=== PATIENT | female | born 1985 ===

== ENCOUNTER 2017-01-17 18:18 | Inpatient (IN) | payer OTHER, MEDICAID ==
--- NOTE | 2017-01-17 18:36 | ED PDOC ---
Arrival/HPI - General Time Seen by Provider: 01/17/17 18:30 Historian: Patient
[2017-01-17 18:59] VITALS: BMI 35.4
--- NOTE | 2017-01-17 19:08 | ED PDOC ---
Arrival/HPI - History of Present Illness Time/Duration: < week Symptom Onset: Sudden Symptom Course: Worsening Quality: Aching, Pressure Severity Level: 5 Activities at Onset: Light Context: Work <Yaneth Delaney - Last Filed: 01/17/17 20:54> <Stacey Galdamez - Last Filed: 01/17/17 21:07> - General Chief Complaint: Lower Extremity Problem/Injury Time Seen by Provider: 01/17/17 18:30 - History of Present Illness Narrative History of Present Illness (Text): 01/17/17 19:24 This is a 31Y F with PMH HTN and hypothyroidism here for L foot pain x 4 days. Patient reports she was at work and got her foot stuck in a wooden pallet. She felt as though she got splinters from it. Since then, her foot has become more red and swollen without any drainage. The patient denies fever or chills, CP, SOB, n/v/d, numbness/tingling. She was able to go to work today and ambulate without any issues. (Yaneth Delaney) Past Medical History - Provider Review Nursing Documentation Reviewed: Yes - Cardiac Hx Cardiac Disorders: Yes Hx Hypertension: Yes - Pulmonary Hx Respiratory Disorders: No - Neurological Hx Neurological Disorder: No - HEENT Hx Blind: No - Renal Hx Renal Disorder: No - Endocrine/Metabolic Hx Endocrine Disorders: No - Hematological/Oncological Hx Blood Disorders: No - Integumentary Hx Dermatological Disorder: No - Musculoskeletal/Rheumatological Hx Musculoskeletal Disorders: No - Gastrointestinal Hx Gastrointestinal Disorders: No - Genitourinary/Gynecological Hx Genitourinary Disorders: No - Psychiatric Hx Psychophysiologic Disorder: No Hx Substance Use: No <Yaneth Delaney - Last Filed: 01/17/17 20:54> Family/Social History - Physician Review Nursing Documentation Reviewed: Yes Family/Social History: Hypertension, CAD/GA, Neoplasm/Cancer Smoking Status: Never Smoked Hx Alcohol Use: No Hx Substance Use: No <Yaneth Delaney - Last Filed: 01/17/17 20:54> Allergies/Home Meds <Yaneth Delaney - Last Filed: 01/17/17 20:54> <Stacey Galdamez - Last Filed: 01/17/17 21:07> Allergies/Adverse Reactions: Allergies No Known Allergies Allergy (Verified 01/17/17 18:32) Home Medications: Home Meds Medication Instructions Recorded Confirmed amLODIPine [Norvasc] 10 mg PO DAILY 01/17/17 01/17/17 hydroCHLOROthiazide [Hydrodiuril] 25 mg PO DAILY 01/17/17 01/17/17 Review of Systems - Physician Review All systems were reviewed & negative as marked: Yes - Review of Systems Constitutional: Normal. absent: Fatigue, Fevers Respiratory: Normal. absent: SOB, Cough Cardiovascular: Normal. absent: Chest Pain, Palpitations Gastrointestinal: Normal. absent: Abdominal Pain, Stool Changes, Diarrhea, Nausea, Vomiting Musculoskeletal: Other (L foot pain and swelling) Skin: Skin Lesions, Cellulitis. absent: Rash, Pruritis Neurological: Normal. absent: Headache, Dizziness Endocrine: Normal. absent: Diaphoresis <Yaneth Delaney - Last Filed: 01/17/17 20:54> Physical Exam Vital Signs Reviewed: Yes Temperature: Afebrile Blood Pressure: Hypertensive Pulse: Regular Respiratory Rate: Normal Appearance: Positive for: Well-Appearing, Non-Toxic, Comfortable Pain Distress: None Mental Status: Positive for: Alert and Oriented X 3 - Systems Exam Head: Present: Atraumatic, Normocephalic Mouth: Present: Moist Mucous Membranes Neck: Present: Normal Range of Motion Respiratory/Chest: Present: Clear to Auscultation, Good Air Exchange. No: Respiratory Distress, Accessory Muscle Use Cardiovascular: Present: Regular Rate and Rhythm, Normal S1, S2. No: Murmurs Abdomen: Present: Normal Bowel Sounds. No: Tenderness, Distention, Peritoneal Signs Back: Present: Normal Inspection Upper Extremity: Present: Normal Inspection. No: Cyanosis, Edema Lower Extremity: Present: Normal Inspection, NORMAL PULSES, Swelling (L foot), Erythema (L foot ) Neurological: Present: GCS=15, CN II-XII Intact, Speech Normal Skin: Present: Warm, Dry, Normal Color. No: Rashes Psychiatric: Present: Alert, Oriented x 3, Normal Insight, Normal Concentration <Yaneth Delaney - Last Filed: 01/17/17 20:54> <Stacey Galdamez - Last Filed: 01/17/17 21:07> Vital Signs Temp Pulse Resp BP Pulse Ox 01/17/17 21:01 137/91 H 01/17/17 18:32 98.5 F 90 16 151/107 H 98 Medical Decision Making Re-evaluation Time: 20:07 Reassessment Condition: Improved <Yaneth Delaney - Last Filed: 01/17/17 20:54> <Stacey Galdamez - Last Filed: 01/17/17 21:07> ED Course and Treatment: 01/17/17 19:35 Impression: This is a 31Y F with PMH HTN and hypothyroidism here for L dorsal foot swelling/ erythema for 4 days after getting foot stuck in wooden pallet. DDX: Cellulitis, foreign body, abscess Plan: -- I&D -- CBC, CMP, blood culture, wound culture -- Foot XR L -- Unasyn and Vanc IV -- TDAP booster --Reassess Prior Visits: Notes and results from previous visits were reviewed. Progress Note: Labs within normal limits. Spoke with vice president supply chain and Dr. Garcia who has accepted the patient. Admit Patient: Re-evaluation. Patient feels better. Discussed results and plan to admit with patient who expresses understanding. All questions answered and there is agreement with the plan. 01/17/17 20:54 (Yaneth Delaney) In agreement with resident note, which includes further HPI details. Patient was seen and evaluated with resident, came up with plan and treatment together. 01/17/17 21:05 Patient with cellulitis after foreign body exposure, which she removed. Swelling and pain is extensive on dorsum of foot - will need iv abx on obs - discussed with Dr. Garcia. (Stacey Galdamez) - Lab Interpretations Lab Results: 01/17/17 19:30 01/17/17 19:30 Lab Results 01/17/17 19:30: Sodium 135, Potassium 3.6, Chloride 99, Carbon Dioxide 25, Anion Gap 15, BUN 16, Creatinine 0.9, Est GFR ( Amer) > 60, Est GFR (Non- Af Amer) > 60, Random Glucose 102, Calcium 9.1, Total Bilirubin 0.5, AST 26, ALT 36, Alkaline Phosphatase 70, Total Protein 8.0, Albumin 4.5, Globulin 3.5, Albumin/Globulin Ratio 1.3 01/17/17 19:30: WBC 9.8, RBC 5.64, Hgb 15.4, Hct 44.3, MCV 78.5 L, MCH 27.3, MCHC 34.8, RDW 14.9 H, Plt Count 259, MPV 9.7 - RAD Interpretation Radiology Orders: 01/17/17 19:11 FOOT LEFT 3 VIEWS ROUTINE [RAD] Stat - Medication Orders Current Medication Orders: Discontinued Medications Ampicillin Sodium/Sulbactam (Sodium 3 gm/ Sodium Chloride) 100 mls @ 100 mls/ hr IVPB STAT [facility] PRN Reason: Protocol Stop: 01/17/17 20:12 Vancomycin HCl (Vancomycin 1gm) 1 gm in 250 mls @ 167 mls/hr IVPB STAT [facility] PRN Reason: Protocol Stop: 01/17/17 20:42 Last Admin: 01/17/17 19:30 Dose: 167 mls/hr Tetanus/Reduced Diphtheria/Acell Pertussis (Boostrix Vaccine Inj) 0.5 ml IM .ONCE ONE Stop: 01/17/17 20:11 Procedures - Incision and Drainage Site: L dorsal foot Blade Size: 11 I & D Procedure: betadine prep, sterile drapes applied <Yaneth Delaney - Last Filed: 01/17/17 20:54> <Stacey Galdamez - Last Filed: 01/17/17 21:07> - Incision and Drainage Progress: Indication: Abscess Location: L dorsal foot Preparation: The area was prepped and draped in the usual sterile fashion and was cleansed with betadine. Local infiltration of Lidocaine 1% 2ml was used for anesthesia. Procedure: The most fluctuant portion of the abscess was incised with a #11 scalpel. Approximately 3mL of bloody drainage was obtained. The abscess was not packed. A dressing was applied by the RN. Post-Procedure: On exam the abscess is notably less fluctuant. The patient tolerated the procedure well, and there were no complications. Cultured: YES (Yaneth Delaney) - PA / GOAL UMPIRE / Resident Statement / has reviewed & agrees with the documentation as recorded. / has examined the patient and agrees with the treatment plan. <Stacey Galdamez - Last Filed: 01/17/17 21:07> Disposition/Present on Arrival - Present on Arrival Any Indicators Present on Arrival: No History of DVT/PE: No History of Uncontrolled Diabetes: No Urinary Catheter: No History of Decub. Ulcer: No History Surgical Site Infection Following: None - Disposition Have Diagnosis and Disposition been Completed?: Yes Disposition Time: 20:08 Patient Plan: Admission <Yaneth Delaney - Last Filed: 01/17/17 20:54> <Stacey Galdamez - Last Filed: 01/17/17 21:07> - Disposition Diagnosis: Abscess Disposition: HOSPITALIZED Patient Problems: Current Active Problems Problem Status Onset Abscess Acute Condition: GOOD
[2017-01-17] MEDS ORDERED: Vancomycin 1gm in NS 250ml 1 GM/250 ML BAG IVPB STA (19:13)
[2017-01-17] MEDS ORDERED: Ampicillin/Sulbactam 3 GM in Sodium Chloride 0.9% 100 ML IVPB STA (19:13)
[2017-01-17 19:50] LABS: HEMATOCRIT 44.3 % (36.0-48.0); MEAN CELL VOLUME 78.5 fL (80.0-105.0); MEAN CORPUSCULAR HEMOGLOBIN 27.3 pg (25.0-35.0); MEAN CORPUSCULAR HGB CONC 34.8 g/dl (31.0-37.0); MEAN PLATELET VOLUME 9.7 fl (7.0-11.0); RED CELL DISTRIBUTION WIDTH 14.9 % (11.5-14.5); WHITE BLOOD COUNT 9.8 10^3/ul (4.5-11.0)
[2017-01-17 20:00] LABS: ALB/GLOB RATIO 1.3 (1.1-1.8); ALKALINE PHOSPHATASE 70 U/L (38-133); ALT/SGPT 36 U/L (7-56); AST/SGOT 26 U/L (15-39); BILIRUBIN,TOTAL 0.5 mg/dL (0.2-1.3); BLOOD UREA NITROGEN 16 mg/dL (7-21); CALCIUM 9.1 mg/dL (8.4-10.5); CARBON DIOXIDE 25 mmol/L (21-33); CHLORIDE 99 mmol/L (98-107); GFR AFRICAN-AMERICAN > 60; GLUCOSE,RANDOM 102 mg/dL (70-110); POTASSIUM 3.6 mmol/L (3.6-5.0); SODIUM 135 mmol/L (132-148)
[2017-01-17] MEDS ORDERED: TDAP Vaccine 0.5 mL Syr IM ONE (20:10)
[2017-01-18] MEDS ORDERED: Albuterol 0.083% Inhal Sol (2.5 mg/3 mL) UD IH PRN (00:45)
--- NOTE | 2017-01-18 00:52 | CP.PCM.HP ---
<Chelsey Huggins - Last Filed: 01/18/17 00:49> History of Present Illness - History of Present Illness History of Present Illness: PGY-1 h&p 31 yo female with PMH of HTN, PCOS presents to ED with left foot pain and swelling for 4 days. Patient states that last monday she got her foot stuck in a wooden pallet and a splinter went in to her skin. Patient states that she pulled it out at the time of the event. Later her foot began to swell and become red. She state sthat she soaked her foot in epsoma salt and peroxide. Patient went to work today and was able to ambulate without difficult. However after work her pain became worse, pain 8/10. She denies any drainage. Denies fever, chill, chest pain, sob. Patient states she occasionally has cough with ser seasonal allergies. In ED patient had I&D, mild puss and blood was removed. PMH: HTN. PCOS PSH: denies allergy: NKDA, seasonal allergies Social HX: former light smoker, occasional alcohol use, denies illicit drug use home meds: norvasc, HCTZ, claritin, Ventolin inhaler Fam hx: mother- HTN, thyroid disease, grandmother heart disease Present on Admission - Present on Admission Any Indicators Present on Admission: No Review of Systems - Constitutional Constitutional: absent: Fever, Headache, Weakness - EENT Nose/Mouth/Throat: absent: Nasal Congestion, Nasal Discharge, Sore Throat - Cardiovascular Cardiovascular: absent: Chest Pain, Diaphoresis, Dyspnea, Palpitations - Respiratory Respiratory: Cough. absent: Dyspnea, Hemoptysis - Gastrointestinal Gastrointestinal: absent: Abdominal Pain, Constipation, Diarrhea, Nausea, Vomiting - Genitourinary Genitourinary: absent: Difficulty Urinating, Dysuria, Hematuria, Urinary Frequency - Reproductive: Female Reproductive:Female: Menses Variable - Menstruation Menstruation: Menses Variable - Musculoskeletal Musculoskeletal: absent: Numbness, Tingling Additional comments: redness and swelling to left foot - Integumentary Integumentary: Swelling. absent: Rash, Skin Ulcer, Wounds - Neurological Neurological: absent: Dizziness, Numbness, Headaches, Syncope, Tingling, Weakness - Hematologic/Lymphatic Hematologic: absent: Easy Bleeding, Easy Bruising Past Patient History - Past Social History Smoking Status: Never Smoked Alcohol: Occasional Drugs: Denies - CARDIAC Hx Cardiac Disorders: Yes Hx Hypertension: Yes - PULMONARY Hx Respiratory Disorders: No - NEUROLOGICAL Hx Neurological Disorder: No - HEENT Hx Blind: No - RENAL Hx Chronic Kidney Disease: No - ENDOCRINE/METABOLIC Hx Endocrine Disorders: No - HEMATOLOGICAL/ONCOLOGICAL Hx Blood Disorders: No - INTEGUMENTARY Hx Dermatological Problems: No - MUSCULOSKELETAL/RHEUMATOLOGICAL Hx Musculoskeletal Disorders: No - GASTROINTESTINAL Hx Gastrointestinal Disorders: No - GENITOURINARY/GYNECOLOGICAL Hx Genitourinary Disorders: No - PSYCHIATRIC Hx Psychophysiologic Disorder: No Hx Substance Use: No - SURGICAL HISTORY Hx Surgeries: No Meds Allergies/Adverse Reactions: Allergies Allergy/AdvReac Type Severity Reaction Status Date / Time No Known Allergies Allergy Verified 01/17/17 18:32 Physical Exam - Constitutional Appears: Well, No Acute Distress - Head Exam Head Exam: ATRAUMATIC, NORMOCEPHALIC - Eye Exam Eye Exam: Normal appearance - ENT Exam ENT Exam: Mucous Membranes Moist - Respiratory Exam Respiratory Exam: Clear to Auscultation Bilateral, NORMAL BREATHING PATTERN. absent: Rhonchi, Wheezes, Respiratory Distress - Cardiovascular Exam Cardiovascular Exam: REGULAR RHYTHM. absent: Tachycardia, Diastolic murmur, Systolic Murmur - GI/Abdominal Exam GI & Abdominal Exam: Normal Bowel Sounds, Soft. absent: Distended, Firm, Guarding, Tenderness - Extremities Exam Extremities exam: Positive for: tenderness Additional comments: swelling and erythema in left foot, small incision secondary to D&C - Neurological Exam Neurological exam: Alert, Oriented x3 Results - Vital Signs Recent Vital Signs: Last Vital Signs Temp 98.5 F 01/17/17 22:40 Pulse 90 01/17/17 22:40 Resp 18 01/17/17 22:40 BP 141/105 H 01/17/17 22:40 Pulse Ox 98 01/17/17 18:32 - Labs Result Diagrams: 01/17/17 19:30 01/17/17 19:30 Assessment & Plan - Assessment and Plan (Free Text) Assessment: 31 yo female with PMH of HTN, PCOS presents to ED with left foot cellulitis. Plan: 1. left foot cellulits - cont abx given in ED - consult ID, Dr. JAZMYNE Nelson for pain - foot xray read pending - cold compress - keep foot elevated - blood and urine consult pending - consider podiatry consult 2. HTN - cont home med, norvasc, and HCTZ - cont to monitor ppx: dvt- lovenox GI- protonix <Jakub Garcia - Last Filed: 01/18/17 05:20> Results - Vital Signs Recent Vital Signs: Last Vital Signs Temp 98.5 F 01/17/17 22:40 Pulse 90 01/17/17 22:40 Resp 18 01/17/17 22:40 BP 141/105 H 01/17/17 22:40 Pulse Ox 98 01/17/17 18:32 - Labs Result Diagrams: 01/17/17 19:30 01/17/17 19:30 Labs: Laboratory Results - last 24 hr 01/17/17 23:30 Urine Color Yellow Urine Appearance Clear Urine pH 5.5 Ur Specific [place] 1.025 Urine Protein Negative Urine Glucose (UA) Negative Urine Ketones Negative Urine Blood Trace-intact H Urine Nitrate Negative Urine Bilirubin Negative Urine Urobilinogen 0.2 Ur Leukocyte Esterase Negative Urine RBC 0 - 2 Urine WBC 1 - 3 Ur Epithelial Cells 4 - 5 Urine Bacteria Few Urine Other Trichomonas Attending/Attestation - Attestation I have personally seen and examined this patient.: Yes I have fully participated in the care of the patient.: Yes I have reviewed all pertinent clinical information: Yes Notes (Text): 01/18/17 05:20 Agree with history, physical examination , assessment and plan.
--- NOTE | 2017-01-18 00:54 | CP.PCM.CON ---
History of Present Illness - History of Present Illness History of Present Illness: Infectious Disease Consultation: January 17, 2017 31 yo AA female with injury to the left foot where a piece of lumbar fell on her foot. Increasing pain, erythema, and swelling of the distal left foot. Difficulty with gait. Patient states that a splinter penetrated through her skin on Monday. Symptoms developed and worsened over the past three days. PMHx: obesity, hypertension PSHx: denies Allergies: NKDA Social Hx: no tobacco, EtOH, or illicit drug use Active Medications Enoxaparin Sodium (Lovenox) 30 mg SC DAILY [facility] PRN Reason: Protocol Ibuprofen (Motrin Tab) 400 mg PO Q6H PRN PRN Reason: Pain, moderate (4-7) Pantoprazole Sodium (Protonix Ec Tab) 40 mg PO DAILY [facility] Family Hx: hypertension in the mother ROS: left foot pain, gait abnormalities. No fevers, chills, nausea, vomiting, diarrhea, headaches, dizziness, chest pain, abdominal pain, melena, hematuria, hematemesis, hematochezia, depression, anxiety Past Patient History - Past Social History Smoking Status: Never Smoked - CARDIAC Hx Cardiac Disorders: Yes Hx Hypertension: Yes - PULMONARY Hx Respiratory Disorders: No - NEUROLOGICAL Hx Neurological Disorder: No - HEENT Hx Blind: No - RENAL Hx Chronic Kidney Disease: No - ENDOCRINE/METABOLIC Hx Endocrine Disorders: No - HEMATOLOGICAL/ONCOLOGICAL Hx Blood Disorders: No - INTEGUMENTARY Hx Dermatological Problems: No - MUSCULOSKELETAL/RHEUMATOLOGICAL Hx Musculoskeletal Disorders: No - GASTROINTESTINAL Hx Gastrointestinal Disorders: No - GENITOURINARY/GYNECOLOGICAL Hx Genitourinary Disorders: No - PSYCHIATRIC Hx Psychophysiologic Disorder: No Hx Substance Use: No - SURGICAL HISTORY Hx Surgeries: No Meds Allergies/Adverse Reactions: Allergies Allergy/AdvReac Type Severity Reaction Status Date / Time No Known Allergies Allergy Verified 01/17/17 18:32 - Medications Medications: Current Medications Enoxaparin Sodium (Lovenox) 30 mg SC DAILY [facility] PRN Reason: Protocol Ibuprofen (Motrin Tab) 400 mg PO Q6H PRN PRN Reason: Pain, moderate (4-7) Pantoprazole Sodium (Protonix Ec Tab) 40 mg PO DAILY [facility] Physical Exam - Constitutional Appears: Non-toxic, No Acute Distress Additional comments: obese - Head Exam Head Exam: ATRAUMATIC, NORMOCEPHALIC - Eye Exam Eye Exam: EOMI, PERRL Pupil Exam: NORMAL ACCOMODATION, PERRL - ENT Exam ENT Exam: Mucous Membranes Moist, Normal External Ear Exam, TM's Normal Bilaterally - Neck Exam Neck exam: Positive for: Full Rom, Normal Inspection - Respiratory Exam Respiratory Exam: Clear to Auscultation Bilateral, NORMAL BREATHING PATTERN. absent: Rales, Rhonchi, Wheezes - Cardiovascular Exam Cardiovascular Exam: REGULAR RHYTHM, RRR, +S1, +S2 - GI/Abdominal Exam GI & Abdominal Exam: Normal Bowel Sounds, Soft. absent: Distended, Tenderness - Extremities Exam Additional comments: left distal foot swelling with erythema and tenderness up to midfoot. - Neurological Exam Neurological exam: Alert, CN II-XII Intact, Oriented x3 - Psychiatric Exam Psychiatric exam: Normal Affect, Normal Mood - Skin Skin Exam: Intact, Normal Color Results - Vital Signs Recent Vital Signs: Last Vital Signs Temp 98.5 F 01/17/17 18:32 Pulse 90 01/17/17 18:32 Resp 16 01/17/17 18:32 BP 137/91 H 01/17/17 21:01 Pulse Ox 98 01/17/17 18:32 - Labs Result Diagrams: 01/17/17 19:30 01/17/17 19:30 Assessment & Plan - Assessment and Plan (Free Text) Assessment: 31 yo AA female who dropped a piece of lumbar on her left foot with a splinter that penetrated just above the second toe. There is erythema, swelling, and tenderness of the left distal foot from the midfoot on. The patient has gait difficulties. Supportive care. Start Zosyn for antibiotic treatment. Wound care at splinter entry point. Obtain X-ray of the left foot. May need CT scan as well. Supportive care. Thank you for allowing me to participate in the care of the patient, we will follow with you.
[2017-01-18 01:10] LABS: PH,URINE 5.5 (4.7-8.0); URINE BILIRUBIN NEGATIVE (NEGATIVE); URINE BLOOD TRACE-INTACT (NEGATIVE); URINE GLUCOSE (UA) NEGATIVE (NEGATIVE); URINE KETONE NEGATIVE (NEGATIVE); URINE LEUKOCYTE ESTERASE NEGATIVE Leu/uL (NEGATIVE); URINE PROTEIN NEGATIVE mg/dL (<30 mg/dL); URINE UROBILINOGEN 0.2 E.U./dL (<1 E.U./dL)
[2017-01-18 01:15] LABS: URINE APPEARANCE CLEAR (CLEAR); URINE COLOR YELLOW (YELLOW)
[2017-01-18 01:21] LABS: URINE RBC 0 - 2 /hpf (0-2)
[2017-01-18 01:22] LABS: URINE BACTERIA FEW (NEG)
[2017-01-18] MEDS ORDERED: Oxycodone/Acetaminophen 2.5/325 mg Tab PO ONE (02:16)
[2017-01-18] MEDS: Piperacillin/Tazobact 3.375 gm 100 ML IVPB SCH ×4 (05:28→23:52)
[2017-01-18 07:23] LABS: ADD MANUAL DIFF? NO
[2017-01-18 07:31] LABS: BASO # 0.03 K/mm3 (0.0-2.0); BASO % 0.4 % (0.0-3.0); EOS # 0.1 (0.0-0.7); EOS % 1.7 % (1.5-5.0); GRAN # 5.16 (1.4-6.5); GRAN % 62.5 % (50.0-68.0); LYMPH # 2.2 (1.2-3.4); MEAN CELL VOLUME 79.2 fL (80.0-105.0); MEAN CORPUSCULAR HEMOGLOBIN 26.4 pg (25.0-35.0); MEAN CORPUSCULAR HGB CONC 33.4 g/dl (31.0-37.0); MEAN PLATELET VOLUME 9.4 fl (7.0-11.0); MONO # 0.8 (0.1-0.6); MONO % 9.4 % (1.0-6.0); PLATELET COUNT 278 10^3/uL (120.0-450.0); RED CELL DISTRIBUTION WIDTH 15.1 % (11.5-14.5); WHITE BLOOD COUNT 8.3 10^3/ul (4.5-11.0)
[2017-01-18 07:47] LABS: ALB/GLOB RATIO 1.2 (1.1-1.8); ALKALINE PHOSPHATASE 71 U/L (38-133); ALT/SGPT 34 U/L (7-56); AST/SGOT 20 U/L (15-39); BILIRUBIN,TOTAL 0.6 mg/dL (0.2-1.3); BLOOD UREA NITROGEN 14 mg/dL (7-21); CALCIUM 8.8 mg/dL (8.4-10.5); CARBON DIOXIDE 29 mmol/L (21-33); CHLORIDE 103 mmol/L (98-107); GFR AFRICAN-AMERICAN > 60; GLUCOSE,RANDOM 89 mg/dL (70-110); POTASSIUM 3.5 mmol/L (3.6-5.0); SODIUM 139 mmol/L (132-148); TOTAL PROTEIN 7.1 g/dL (5.8-8.3)
--- NOTE | 2017-01-18 08:01 | RAD ---
PROCEDURE: Left Foot Radiographs. HISTORY: r/o foreign body/ fracture COMPARISON: None. FINDINGS: BONES: Normal. No fracture. JOINTS: Normal. SOFT TISSUES: Moderate diffuse circumferential soft tissue swelling most pronounced at the level of the metatarsals ; the swelling could be post traumatic however possibility of cellulitis not excluded OTHER FINDINGS: No radiopaque foreign body seen. IMPRESSION: No acute fracture seen. No radiopaque foreign bodies. Moderate diffuse circumferential soft tissue swelling which could be posttraumatic however cellulitis not excluded.
[2017-01-18] MEDS: Oxycodone/Acetaminophen 5/325 mg Tab PO PRN ×3 (08:38→23:52)
[2017-01-18] MEDS: Vancomycin 1gm in NS 250ml 1 GM/250 ML BAG IVPB SCH ×2 (08:38→19:34)
[2017-01-18] MEDS: Enoxaparin 30 mg Syringe SC SCH (10:17)
[2017-01-18] MEDS: Pantoprazole 40 mg EC Tab PO SCH (10:18)
--- NOTE | 2017-01-18 12:53 | CP.PCM.PN ---
Subjective - Date & Time of Evaluation Date of Evaluation: 01/18/17 Time of Evaluation: 12:00 - Subjective Subjective: Infectious Disease Follow Up: January 18, 2017 31 yo AA female with injury to the left foot where a piece of lumbar fell on her foot. Increasing pain, erythema, and swelling of the distal left foot. Difficulty with gait. Patient states that a splinter penetrated through her skin on Monday. Symptoms developed and worsened over the past three days. The patient with slight improvement since admission. Still under 24 hours of antibiotic. I&D done in ER. Minimal pus found. Objective - Vital Signs/Intake and Output Vital Signs (last 24 hours): Temp Pulse Resp BP Pulse Ox 97.6 F 68 20 102/66 98 01/18/17 08:20 01/18/17 08:20 01/18/17 08:20 01/18/17 10:18 01/18/17 08:20 Intake and Output: 01/18/17 01/18/17 06:59 18:59 Intake Total 0 Balance 0 - Medications Medications: Current Medications Albuterol Sulfate (Albuterol 0.083% Inhal Mimi (2.5 Mg/3 Ml) Ud) 2.5 mg IH [id number] PRN PRN Reason: Shortness of Breath Amlodipine Besylate (Norvasc) 10 mg PO DAILY [facility] Last Admin: 01/18/17 10:18 Dose: 10 mg Enoxaparin Sodium (Lovenox) 30 mg SC DAILY [facility] PRN Reason: Protocol Last Admin: 01/18/17 10:17 Dose: 30 mg Hydrochlorothiazide (Hydrodiuril) 25 mg PO DAILY [facility] Last Admin: 01/18/17 10:18 Dose: 25 mg Vancomycin HCl (Vancomycin 1gm) 1 gm in 250 mls @ 167 mls/hr IVPB Q12H [facility] PRN Reason: Protocol Last Admin: 01/18/17 08:38 Dose: 167 mls/hr Piperacillin Sod/Tazobactam Sod (Zosyn 3.375 In Ns 100ml) 100 mls @ 200 mls/hr IVPB Q6 [facility] PRN Reason: Protocol Last Admin: 01/18/17 12:10 Dose: 200 mls/hr Ibuprofen (Motrin Tab) 400 mg PO Q6H PRN PRN Reason: Pain, moderate (4-7) Last Admin: 01/18/17 01:33 Dose: 400 mg Loratadine (Claritin) 10 mg PO DAILY [facility] Last Admin: 01/18/17 10:18 Dose: 10 mg Oxycodone/Acetaminophen (Percocet 5/325 Mg Tab) 1 tab PO Q8H PRN PRN Reason: Pain, severe (8-10) Stop: 01/21/17 07:37 Last Admin: 01/18/17 08:38 Dose: 1 tab Pantoprazole Sodium (Protonix Ec Tab) 40 mg PO DAILY [facility] Last Admin: 01/18/17 10:18 Dose: 40 mg - Labs Labs: 01/18/17 07:00 01/18/17 07:00 - Constitutional Appears: Non-toxic, No Acute Distress - Head Exam Head Exam: ATRAUMATIC, NORMOCEPHALIC - Eye Exam Eye Exam: EOMI, PERRL Pupil Exam: NORMAL ACCOMODATION, PERRL - ENT Exam ENT Exam: Mucous Membranes Moist, Normal External Ear Exam, TM's Normal Bilaterally - Neck Exam Neck Exam: Full ROM, Normal Inspection - Respiratory Exam Respiratory Exam: Clear to Ausculation Bilateral, NORMAL BREATHING PATTERN. absent: Rales, Rhonchi, Wheezes - Cardiovascular Exam Cardiovascular Exam: REGULAR RHYTHM, RRR, +S1, +S2 - GI/Abdominal Exam GI & Abdominal Exam: Soft, Normal Bowel Sounds. absent: Distended, Tenderness - Extremities Exam Extremities Exam: Full ROM Additional comments: left distal foot swelling with erythema and tenderness up to midfoot. 1.5 cm I& D. - Neurological Exam Neurological Exam: Alert, Awake, CN II-XII Intact, Oriented x3 - Psychiatric Exam Psychiatric exam: Normal Affect, Normal Mood - Skin Skin Exam: Intact, Normal Color Assessment and Plan - Assessment and Plan (Free Text) Assessment: 31 yo AA female who dropped a piece of lumbar on her left foot with a splinter that penetrated just above the second toe. There is erythema, swelling, and tenderness of the left distal foot from the midfoot on. The patient has gait difficulties. Supportive care. Continue on Zosyn for antibiotic treatment. Wound care at splinter entry point. X-ray of the left foot does not show fractures or collections. May need CT scan as well. If no improvement in the next 24 hours, will add Vancomycin to the patient's regimen. Await culture results especially from the wound. Supportive care. Thank you for allowing me to participate in the care of the patient, we will follow with you.
[2017-01-19] MEDS: Piperacillin/Tazobact 3.375 gm 100 ML IVPB SCH ×4 (05:36→23:01)
[2017-01-19 08:20] LABS: ADD MANUAL DIFF? NO
[2017-01-19 08:25] LABS: BASO # 0.03 K/mm3 (0.0-2.0); BASO % 0.4 % (0.0-3.0); EOS # 0.1 (0.0-0.7); EOS % 1.9 % (1.5-5.0); GRAN # 4.03 (1.4-6.5); GRAN % 55.4 % (50.0-68.0); HEMATOCRIT 40.8 % (36.0-48.0); LYMPH # 2.3 (1.2-3.4); LYMPH % 30.9 % (22.0-35.0); MEAN CELL VOLUME 79.4 fL (80.0-105.0); MEAN CORPUSCULAR HEMOGLOBIN 26.3 pg (25.0-35.0); MEAN CORPUSCULAR HGB CONC 33.1 g/dl (31.0-37.0); MONO # 0.8 (0.1-0.6); MONO % 11.4 % (1.0-6.0); PLATELET COUNT 262 10^3/uL (120.0-450.0); RED CELL DISTRIBUTION WIDTH 15.7 % (11.5-14.5); WHITE BLOOD COUNT 7.3 10^3/ul (4.5-11.0)
[2017-01-19] MEDS: Vancomycin 1gm in NS 250ml 1 GM/250 ML BAG IVPB SCH ×2 (08:28→19:38)
[2017-01-19] MEDS: Oxycodone/Acetaminophen 5/325 mg Tab PO PRN ×2 (08:36→17:19)
[2017-01-19 08:37] LABS: ALB/GLOB RATIO 1.1 (1.1-1.8); ALKALINE PHOSPHATASE 64 U/L (38-133); ALT/SGPT 41 U/L (7-56); AST/SGOT 21 U/L (15-39); BILIRUBIN,TOTAL 0.6 mg/dL (0.2-1.3); BLOOD UREA NITROGEN 15 mg/dL (7-21); CALCIUM 8.5 mg/dL (8.4-10.5); CARBON DIOXIDE 28 mmol/L (21-33); CHLORIDE 103 mmol/L (98-107); GFR AFRICAN-AMERICAN > 60; GLUCOSE,RANDOM 83 mg/dL (70-110); POTASSIUM 3.6 mmol/L (3.6-5.0); SODIUM 136 mmol/L (132-148); TOTAL PROTEIN 6.9 g/dL (5.8-8.3)
[2017-01-19] MEDS: Enoxaparin 30 mg Syringe SC SCH (09:25)
[2017-01-19] MEDS: Pantoprazole 40 mg EC Tab PO SCH (09:25)
--- NOTE | 2017-01-19 14:42 | CP.PCM.CON ---
<Demian العلي - Last Filed: 01/19/17 14:37> History of Present Illness - History of Present Illness History of Present Illness: PODIATRY CONSULT NOTE 31 year old female seen at bedside concerning left foot wound and cellulits. Pt reports she developed a wound to her left foot causes by wooden splinter 4 days prior. Wound had drained pus which prompted her to seek medical attention. I&D performed in ED. Pt denies recent f/c/cp/sob/n/v. Pt has reported redness and swelling to the left foot have decreased since admission and start of IV antibiotics. Past Patient History - Past Social History Smoking Status: Never Smoked Alcohol: Occasional Drugs: Denies - CARDIAC Hx Cardiac Disorders: Yes Hx Hypertension: Yes - PULMONARY Hx Respiratory Disorders: No - NEUROLOGICAL Hx Neurological Disorder: No - HEENT Hx Blind: No - RENAL Hx Chronic Kidney Disease: No - ENDOCRINE/METABOLIC Hx Endocrine Disorders: No - HEMATOLOGICAL/ONCOLOGICAL Hx Blood Disorders: No - INTEGUMENTARY Hx Dermatological Problems: No - MUSCULOSKELETAL/RHEUMATOLOGICAL Hx Musculoskeletal Disorders: No - GASTROINTESTINAL Hx Gastrointestinal Disorders: No - GENITOURINARY/GYNECOLOGICAL Hx Genitourinary Disorders: No - PSYCHIATRIC Hx Psychophysiologic Disorder: No Hx Substance Use: No - SURGICAL HISTORY Hx Surgeries: No Meds Allergies/Adverse Reactions: Allergies Allergy/AdvReac Type Severity Reaction Status Date / Time No Known Allergies Allergy Verified 01/17/17 18:32 - Medications Medications: Current Medications Albuterol Sulfate (Albuterol 0.083% Inhal Mimi (2.5 Mg/3 Ml) Ud) 2.5 mg IH [id number] PRN PRN Reason: Shortness of Breath Amlodipine Besylate (Norvasc) 10 mg PO DAILY [facility] Last Admin: 01/19/17 09:25 Dose: 10 mg Enoxaparin Sodium (Lovenox) 30 mg SC DAILY [facility] PRN Reason: Protocol Last Admin: 01/19/17 09:25 Dose: 30 mg Hydrochlorothiazide (Hydrodiuril) 25 mg PO DAILY [facility] Last Admin: 01/19/17 09:25 Dose: 25 mg Vancomycin HCl (Vancomycin 1gm) 1 gm in 250 mls @ 167 mls/hr IVPB Q12H [facility] PRN Reason: Protocol Last Admin: 01/19/17 08:28 Dose: 167 mls/hr Piperacillin Sod/Tazobactam Sod (Zosyn 3.375 In Ns 100ml) 100 mls @ 200 mls/hr IVPB Q6 [facility] PRN Reason: Protocol Last Admin: 01/19/17 11:41 Dose: 200 mls/hr Ibuprofen (Motrin Tab) 400 mg PO Q6H PRN PRN Reason: Pain, moderate (4-7) Last Admin: 01/19/17 05:36 Dose: 400 mg Loratadine (Claritin) 10 mg PO DAILY [facility] Last Admin: 01/19/17 09:25 Dose: 10 mg Oxycodone/Acetaminophen (Percocet 5/325 Mg Tab) 1 tab PO Q8H PRN PRN Reason: Pain, severe (8-10) Stop: 01/21/17 07:37 Last Admin: 01/19/17 08:36 Dose: 1 tab Pantoprazole Sodium (Protonix Ec Tab) 40 mg PO DAILY [facility] Last Admin: 01/19/17 09:25 Dose: 40 mg Physical Exam - Constitutional Appears: Well, Non-toxic, No Acute Distress - Extremities Exam Additional comments: Lef tfoot focused. Neuro-vascular status intact to left foot. Non-pittinge edema noted to dorsal aspect of central 3 digits DERM: Sirsal minor 0.5cm transverse incsion/ wound site absent purulent discharge a this time noted, with periwound edema and erythema extending out 2cm circumferentiallly. No mal-odor noted. Results - Vital Signs Recent Vital Signs: Last Vital Signs Temp 98.3 F 01/19/17 08:12 Pulse 64 01/19/17 08:12 Resp 20 01/19/17 08:12 BP 110/64 01/19/17 09:25 Pulse Ox 99 01/19/17 08:12 - Labs Result Diagrams: 01/19/17 07:30 01/19/17 07:30 Labs: Laboratory Results - last 24 hr 01/19/17 01/19/17 07:30 07:30 WBC 7.3 RBC 5.14 Hgb 13.5 Hct 40.8 MCV 79.4 L MCH 26.3 MCHC 33.1 RDW 15.7 H Plt Count 262 MPV 10.0 Gran % 55.4 Lymph % (Auto) 30.9 Tyler % (Auto) 11.4 H Eos % (Auto) 1.9 Baso % (Auto) 0.4 Gran # 4.03 Lymph # 2.3 Tyler # 0.8 H Eos # 0.1 Baso # 0.03 Sodium 136 Potassium 3.6 Chloride 103 Carbon Dioxide 28 Anion Gap 9 L BUN 15 Creatinine 0.9 Est GFR ( Amer) > 60 Est GFR (Non-Af Amer) > 60 Random Glucose 83 Calcium 8.5 Total Bilirubin 0.6 AST 21 ALT 41 Alkaline Phosphatase 64 Total Protein 6.9 Albumin 3.6 Globulin 3.2 Albumin/Globulin Ratio 1.1 Assessment & Plan - Assessment and Plan (Free Text) Assessment: 31 year old female with left dorsal foot wound secondary to foreign body penetration. Plan: Pt seen and evaluated with attending Dr. Schaffer present. Charts labs and vitals reviewed. Absent leukocytosis and afebrile. X-rays reviewed. Mild soft tissue swelling noted. Underlying 2nd metatarsal cortical thickening and lateral diaphyseal protusion noted. MRI-ordered of left foot to r/o underling metatarsal stress fracture. Dressed wound site with Hydrogel and optifoam. Ordered Silvedene 1% to be applied to site starting tomorrow. Podiatry will continue to follow pt while inhouse. - Date & Time Date: 01/19/17 Time: 08:40 <Abena Schaffer - Last Filed: 01/22/17 16:49> Results - Vital Signs Recent Vital Signs: Last Vital Signs Temp 98.2 F 01/20/17 06:00 Pulse 62 01/20/17 06:00 Resp 20 01/20/17 06:00 BP 106/69 01/20/17 09:39 Pulse Ox 97 01/20/17 06:00 - Labs Result Diagrams: 01/20/17 07:00 01/20/17 07:00 Attending/Attestation - Attestation I have personally seen and examined this patient.: Yes I have fully participated in the care of the patient.: Yes I have reviewed all pertinent clinical information: Yes
--- NOTE | 2017-01-19 15:11 | CP.PCM.PN ---
Subjective - Date & Time of Evaluation Date of Evaluation: 01/19/17 Time of Evaluation: 13:45 - Subjective Subjective: Infectious Disease Follow Up: January 19, 2017 31 yo AA female with injury to the left foot where a piece of lumbar fell on her foot. Increasing pain, erythema, and swelling of the distal left foot. Difficulty with gait. Patient states that a splinter penetrated through her skin on Monday. Symptoms developed and worsened over the past three days. The patient with improvement since admission. I&D done in ER. Minimal pus found. On Vancomycin and Zosyn currently. The patient is able to ambulate to the bathroom on her own. Decreased tenderness of the left foot with improvement of swelling, erythema, and tenderness of the distal left foot. Objective - Vital Signs/Intake and Output Vital Signs (last 24 hours): Temp Pulse Resp BP Pulse Ox 98.3 F 64 20 110/64 99 01/19/17 08:12 01/19/17 08:12 01/19/17 08:12 01/19/17 09:25 01/19/17 08:12 Intake and Output: 01/19/17 01/19/17 06:59 18:59 Intake Total 840 Balance 840 - Medications Medications: Current Medications Albuterol Sulfate (Albuterol 0.083% Inhal Mimi (2.5 Mg/3 Ml) Ud) 2.5 mg IH [id number] PRN PRN Reason: Shortness of Breath Amlodipine Besylate (Norvasc) 10 mg PO DAILY [facility] Last Admin: 01/19/17 09:25 Dose: 10 mg Enoxaparin Sodium (Lovenox) 30 mg SC DAILY [facility] PRN Reason: Protocol Last Admin: 01/19/17 09:25 Dose: 30 mg Hydrochlorothiazide (Hydrodiuril) 25 mg PO DAILY [facility] Last Admin: 01/19/17 09:25 Dose: 25 mg Vancomycin HCl (Vancomycin 1gm) 1 gm in 250 mls @ 167 mls/hr IVPB Q12H [facility] PRN Reason: Protocol Last Admin: 01/19/17 08:28 Dose: 167 mls/hr Piperacillin Sod/Tazobactam Sod (Zosyn 3.375 In Ns 100ml) 100 mls @ 200 mls/hr IVPB Q6 [facility] PRN Reason: Protocol Last Admin: 01/19/17 11:41 Dose: 200 mls/hr Ibuprofen (Motrin Tab) 400 mg PO Q6H PRN PRN Reason: Pain, moderate (4-7) Last Admin: 01/19/17 05:36 Dose: 400 mg Loratadine (Claritin) 10 mg PO DAILY [facility] Last Admin: 01/19/17 09:25 Dose: 10 mg Oxycodone/Acetaminophen (Percocet 5/325 Mg Tab) 1 tab PO Q8H PRN PRN Reason: Pain, severe (8-10) Stop: 01/21/17 07:37 Last Admin: 01/19/17 08:36 Dose: 1 tab Pantoprazole Sodium (Protonix Ec Tab) 40 mg PO DAILY [facility] Last Admin: 01/19/17 09:25 Dose: 40 mg - Labs Labs: 01/19/17 07:30 01/19/17 07:30 - Constitutional Appears: Non-toxic, No Acute Distress, Chronically Ill - Head Exam Head Exam: ATRAUMATIC - Eye Exam Eye Exam: EOMI, PERRL Pupil Exam: NORMAL ACCOMODATION, PERRL - ENT Exam ENT Exam: Mucous Membranes Moist, Normal External Ear Exam, TM's Normal Bilaterally - Neck Exam Neck Exam: Full ROM, Normal Inspection - Respiratory Exam Respiratory Exam: Clear to Ausculation Bilateral, Rales, NORMAL BREATHING PATTERN. absent: Rhonchi, Wheezes - Cardiovascular Exam Cardiovascular Exam: REGULAR RHYTHM, RRR, +S1, +S2 - GI/Abdominal Exam GI & Abdominal Exam: Soft, Normal Bowel Sounds. absent: Distended, Tenderness - Extremities Exam Extremities Exam: Full ROM Additional comments: left distal foot swelling with erythema and tenderness up to midfoot. 1.5 cm incision from I&D. Overall swelling and erythema has improved. Patient able to walk with foot. - Neurological Exam Neurological Exam: Alert, Awake, CN II-XII Intact, Oriented x3 - Psychiatric Exam Psychiatric exam: Normal Affect, Normal Mood - Skin Skin Exam: Intact, Normal Color Additional comments: as per extremity exam. Assessment and Plan - Assessment and Plan (Free Text) Assessment: 31 yo AA female who dropped a piece of lumbar on her left foot with a splinter that penetrated just above the second toe. There is erythema, swelling, and tenderness of the left distal foot from the midfoot on. The patient has gait difficulties. Supportive care. Continue on Zosyn for antibiotic treatment. Wound care at splinter entry point. X-ray of the left foot does not show fractures or collections. Await culture results especially from the wound. On Zosyn and IV Vancomycin for antibiotic treatment. Cultures negative to date. Patient able to walk with decreased pain to left foot. Patient improving overall. Supportive care. Thank you for allowing me to participate in the care of the patient, we will follow with you.
--- NOTE | 2017-01-19 16:00 | CP.PCM.PN ---
<DeyviJonathan roth - Last Filed: 01/19/17 15:56> Subjective - Date & Time of Evaluation Date of Evaluation: 01/19/17 Time of Evaluation: 07:20 - Subjective Subjective: Medicine Progress note. Dr. Hines Pt seen and examined at bedside. No acute events overnight. Patient states that left foot pain and swelling is improving. No F/C. Able to ambulate without assistance. No new complaints. Denies any urinary complaints. Objective - Vital Signs/Intake and Output Vital Signs (last 24 hours): Temp Pulse Resp BP Pulse Ox 98.3 F 64 20 110/64 99 01/19/17 08:12 01/19/17 08:12 01/19/17 08:12 01/19/17 09:25 01/19/17 08:12 Intake and Output: 01/19/17 01/19/17 06:59 18:59 Intake Total 840 Balance 840 - Medications Medications: Current Medications Albuterol Sulfate (Albuterol 0.083% Inhal Mimi (2.5 Mg/3 Ml) Ud) 2.5 mg IH [id number] PRN PRN Reason: Shortness of Breath Amlodipine Besylate (Norvasc) 10 mg PO DAILY [facility] Last Admin: 01/19/17 09:25 Dose: 10 mg Enoxaparin Sodium (Lovenox) 30 mg SC DAILY [facility] PRN Reason: Protocol Last Admin: 01/19/17 09:25 Dose: 30 mg Hydrochlorothiazide (Hydrodiuril) 25 mg PO DAILY [facility] Last Admin: 01/19/17 09:25 Dose: 25 mg Vancomycin HCl (Vancomycin 1gm) 1 gm in 250 mls @ 167 mls/hr IVPB Q12H [facility] PRN Reason: Protocol Last Admin: 01/19/17 08:28 Dose: 167 mls/hr Piperacillin Sod/Tazobactam Sod (Zosyn 3.375 In Ns 100ml) 100 mls @ 200 mls/hr IVPB Q6 [facility] PRN Reason: Protocol Last Admin: 01/19/17 11:41 Dose: 200 mls/hr Ibuprofen (Motrin Tab) 400 mg PO Q6H PRN PRN Reason: Pain, moderate (4-7) Last Admin: 01/19/17 05:36 Dose: 400 mg Loratadine (Claritin) 10 mg PO DAILY [facility] Last Admin: 01/19/17 09:25 Dose: 10 mg Oxycodone/Acetaminophen (Percocet 5/325 Mg Tab) 1 tab PO Q8H PRN PRN Reason: Pain, severe (8-10) Stop: 01/21/17 07:37 Last Admin: 01/19/17 08:36 Dose: 1 tab Pantoprazole Sodium (Protonix Ec Tab) 40 mg PO DAILY [facility] Last Admin: 01/19/17 09:25 Dose: 40 mg - Labs Labs: 01/19/17 07:30 01/19/17 07:30 - Constitutional Appears: Well, No Acute Distress - Head Exam Head Exam: ATRAUMATIC, NORMAL INSPECTION, NORMOCEPHALIC - Eye Exam Eye Exam: EOMI, Normal appearance, PERRL. absent: Scleral icterus Pupil Exam: PERRL - ENT Exam ENT Exam: Mucous Membranes Moist - Respiratory Exam Respiratory Exam: Clear to Ausculation Bilateral. absent: Decreased Breath Sounds, Rales, Rhonchi, Wheezes - Cardiovascular Exam Cardiovascular Exam: RRR, +S1, +S2. absent: JVD - GI/Abdominal Exam GI & Abdominal Exam: Soft. absent: Distended, Guarding, Tenderness - Extremities Exam Additional comments: left foot bandage in place. mild Redness and swelling present, improved since yesterday. No fluctuance, no active drainage. distal pulses intact. neurovascularly intact. - Neurological Exam Neurological Exam: Alert, Awake - Psychiatric Exam Psychiatric exam: Normal Affect, Normal Mood Assessment and Plan - Assessment and Plan (Free Text) Assessment: 31yo F with PMHx of HTN, PCOS presents to ED with left foot cellulitis. Plan: 1. left foot cellulits afebrile no leukocytosis - cont IV abx - consult ID, Dr. SAMANO continue current treatment. awaiting wound cultures - pain management: motrin, percocet - foot xray- no acute fx - cold compress as needed - keep foot elevated - podiatry consult obtained, Dr. Paul, appreciate recs f/u Foot MRI 2. Asymptomatic Trichomoniasis UA upon admission with evidence of Trichomonads STI education provided counseled patient about treatment for all sexual partners - Single dose Metronidazole 2g PO counseled on ETOH abstinence for 48 hours 3. Hx of HTN - cont home med, norvasc, and HCTZ - cont to monitor 4. Ppx dvt- lovenox GI- protonix Discussed case with Dr. Flora Carnes PGY1 <Flora STEVENSON,Stan - Last Filed: 01/19/17 17:42> Objective - Vital Signs/Intake and Output Vital Signs (last 24 hours): Temp Pulse Resp BP Pulse Ox 98.7 F 78 18 139/103 H 98 01/19/17 16:00 01/19/17 16:00 01/19/17 16:00 01/19/17 16:00 01/19/17 16:00 Intake and Output: 01/19/17 01/19/17 06:59 18:59 Intake Total 840 Balance 840 - Medications Medications: Current Medications Albuterol Sulfate (Albuterol 0.083% Inhal Mimi (2.5 Mg/3 Ml) Ud) 2.5 mg IH [id number] PRN PRN Reason: Shortness of Breath Amlodipine Besylate (Norvasc) 10 mg PO DAILY [facility] Last Admin: 01/19/17 09:25 Dose: 10 mg Enoxaparin Sodium (Lovenox) 30 mg SC DAILY [facility] PRN Reason: Protocol Last Admin: 01/19/17 09:25 Dose: 30 mg Hydrochlorothiazide (Hydrodiuril) 25 mg PO DAILY [facility] Last Admin: 01/19/17 09:25 Dose: 25 mg Vancomycin HCl (Vancomycin 1gm) 1 gm in 250 mls @ 167 mls/hr IVPB Q12H [facility] PRN Reason: Protocol Last Admin: 01/19/17 08:28 Dose: 167 mls/hr Piperacillin Sod/Tazobactam Sod (Zosyn 3.375 In Ns 100ml) 100 mls @ 200 mls/hr IVPB Q6 [facility] PRN Reason: Protocol Last Admin: 01/19/17 17:12 Dose: 200 mls/hr Ibuprofen (Motrin Tab) 400 mg PO Q6H PRN PRN Reason: Pain, moderate (4-7) Last Admin: 01/19/17 05:36 Dose: 400 mg Loratadine (Claritin) 10 mg PO DAILY [facility] Last Admin: 01/19/17 09:25 Dose: 10 mg Oxycodone/Acetaminophen (Percocet 5/325 Mg Tab) 1 tab PO Q8H PRN PRN Reason: Pain, severe (8-10) Stop: 01/21/17 07:37 Last Admin: 01/19/17 17:19 Dose: 1 tab Pantoprazole Sodium (Protonix Ec Tab) 40 mg PO DAILY [facility] Last Admin: 01/19/17 09:25 Dose: 40 mg - Labs Labs: 01/19/17 07:30 01/19/17 07:30 Attending/Attestation - Attestation I have personally seen and examined this patient.: Yes I have fully participated in the care of the patient.: Yes I have reviewed all pertinent clinical information, including history, physical exam and plan: Yes Notes (Text): 01/19/17 17:40 Patient was seen and examined with medical records supervisor .Agreed with resident assessment and plan. Patient is feeling better, redness and swelling is improving.Cultures are negative.We will follow up MRI of foot, if no bony involvement, can be discharged home with oral antibiotics.Podiatry follow up is appreciated. Management plan was discussed in detail with patient Education was provided.
[2017-01-20] MEDS: Piperacillin/Tazobact 3.375 gm 100 ML IVPB SCH ×2 (05:15→11:57)
[2017-01-20] MEDS: Oxycodone/Acetaminophen 5/325 mg Tab PO PRN (05:15)
[2017-01-20] MEDS: Vancomycin 1gm in NS 250ml 1 GM/250 ML BAG IVPB SCH (07:35)
[2017-01-20 07:49] LABS: ADD MANUAL DIFF? NO
[2017-01-20 07:55] LABS: BASO # 0.03 K/mm3 (0.0-2.0); BASO % 0.5 % (0.0-3.0); EOS # 0.1 (0.0-0.7); EOS % 2.2 % (1.5-5.0); GRAN # 3.74 (1.4-6.5); GRAN % 58.9 % (50.0-68.0); HEMATOCRIT 38.8 % (36.0-48.0); LYMPH % 30.8 % (22.0-35.0); MEAN CORPUSCULAR HEMOGLOBIN 26.3 pg (25.0-35.0); MEAN CORPUSCULAR HGB CONC 33.2 g/dl (31.0-37.0); MEAN PLATELET VOLUME 9.4 fl (7.0-11.0); MONO # 0.5 (0.1-0.6); MONO % 7.6 % (1.0-6.0); PLATELET COUNT 265 10^3/uL (120.0-450.0); WHITE BLOOD COUNT 6.3 10^3/ul (4.5-11.0)
[2017-01-20 08:15] LABS: BLOOD UREA NITROGEN 14 mg/dL (7-21); CALCIUM 8.6 mg/dL (8.4-10.5); CARBON DIOXIDE 27 mmol/L (21-33); CHLORIDE 104 mmol/L (98-107); GFR AFRICAN-AMERICAN > 60; GLUCOSE,RANDOM 85 mg/dL (70-110); POTASSIUM 3.6 mmol/L (3.6-5.0); SODIUM 137 mmol/L (132-148)
[2017-01-20 08:36] VITALS: BP 106/69; PULSE 62; RESP 20; TEMP 98.2; O2SAT 97
[2017-01-20] MEDS: Enoxaparin 30 mg Syringe SC SCH (09:37)
[2017-01-20] MEDS: Pantoprazole 40 mg EC Tab PO SCH (09:39)
--- NOTE | 2017-01-20 11:08 | MRI ---
PROCEDURE: MRI Left Foot HISTORY: Pain. COMPARISON: Plain radiographs from 01/17/2017 TECHNIQUE: Multiecho multiplanar sequences were performed through the left foot without the use of intravenous contrast. FINDINGS: BONES: There is normal bone marrow signal. There is no evidence of bone marrow edema, contusion or fracture. Bone alignment is normal. MUSCLES: The periarticular muscles are normal in appearance with normal intrinsic signal. SOFT TISSUES: There is diffuse soft tissue swelling in the dorsal and lateral foot with subcutaneous edema/fluid. No evidence of abscess or drainable fluid collection. OTHER FINDINGS: None. IMPRESSION: Findings are most compatible with cellulitis in the dorsal and lateral foot. No evidence of drainable fluid collection. No definite evidence for osteomyelitis or acute fracture. A preliminary report was provided by [employer] services.
--- NOTE | 2017-01-20 11:42 | CP.PCM.CON ---
<Demian العلي - Last Filed: 01/20/17 11:39> History of Present Illness - History of Present Illness History of Present Illness: PODIATRY CONSULT NOTE 31 year old female seen at bedside concerning left foot wound and cellulits. Pt denies recent f/c/cp/sob/n/v. She reports decreased redness and swelling to the left foot, as well as decreased throbbing pain to the limb. No new onset complaints. Past Patient History - Past Social History Smoking Status: Never Smoked Alcohol: Occasional Drugs: Denies - CARDIAC Hx Cardiac Disorders: Yes Hx Hypertension: Yes - PULMONARY Hx Respiratory Disorders: No - NEUROLOGICAL Hx Neurological Disorder: No - HEENT Hx Blind: No - RENAL Hx Chronic Kidney Disease: No - ENDOCRINE/METABOLIC Hx Endocrine Disorders: No - HEMATOLOGICAL/ONCOLOGICAL Hx Blood Disorders: No - INTEGUMENTARY Hx Dermatological Problems: No - MUSCULOSKELETAL/RHEUMATOLOGICAL Hx Musculoskeletal Disorders: No - GASTROINTESTINAL Hx Gastrointestinal Disorders: No - GENITOURINARY/GYNECOLOGICAL Hx Genitourinary Disorders: No - PSYCHIATRIC Hx Psychophysiologic Disorder: No Hx Substance Use: No - SURGICAL HISTORY Hx Surgeries: No Meds Allergies/Adverse Reactions: Allergies Allergy/AdvReac Type Severity Reaction Status Date / Time No Known Allergies Allergy Verified 01/17/17 18:32 - Medications Medications: Current Medications Albuterol Sulfate (Albuterol 0.083% Inhal Mimi (2.5 Mg/3 Ml) Ud) 2.5 mg IH [id number] PRN PRN Reason: Shortness of Breath Amlodipine Besylate (Norvasc) 10 mg PO DAILY [facility] Last Admin: 01/20/17 09:39 Dose: 10 mg Enoxaparin Sodium (Lovenox) 30 mg SC DAILY [facility] PRN Reason: Protocol Last Admin: 01/20/17 09:37 Dose: 30 mg Hydrochlorothiazide (Hydrodiuril) 25 mg PO DAILY [facility] Last Admin: 01/20/17 09:39 Dose: 25 mg Vancomycin HCl (Vancomycin 1gm) 1 gm in 250 mls @ 167 mls/hr IVPB Q12H [facility] PRN Reason: Protocol Last Admin: 01/20/17 07:35 Dose: 167 mls/hr Piperacillin Sod/Tazobactam Sod (Zosyn 3.375 In Ns 100ml) 100 mls @ 200 mls/hr IVPB Q6 [facility] PRN Reason: Protocol Last Admin: 01/20/17 05:15 Dose: 200 mls/hr Ibuprofen (Motrin Tab) 400 mg PO Q6H PRN PRN Reason: Pain, moderate (4-7) Last Admin: 01/19/17 23:07 Dose: 400 mg Loratadine (Claritin) 10 mg PO DAILY [facility] Last Admin: 01/20/17 09:39 Dose: 10 mg Oxycodone/Acetaminophen (Percocet 5/325 Mg Tab) 1 tab PO Q8H PRN PRN Reason: Pain, severe (8-10) Stop: 01/21/17 07:37 Last Admin: 01/20/17 05:15 Dose: 1 tab Pantoprazole Sodium (Protonix Ec Tab) 40 mg PO DAILY [facility] Last Admin: 01/20/17 09:39 Dose: 40 mg Physical Exam - Constitutional Appears: Well, Non-toxic, No Acute Distress - Extremities Exam Additional comments: Left foot focused. Neuro-vascular status intact to left foot. Non-pittinge edema noted to dorsal aspect of central 3 digits DERM: Minor 0.5cm transverse incision/ wound site absent purulent discharge a this time noted, with ephraim-wound edema and erythema extending out 1cm circumferentiallly. No mal-odor noted. Minor wound margin maceration. - Neurological Exam Neurological exam: Alert, Oriented x3 - Psychiatric Exam Psychiatric exam: Normal Affect, Normal Mood Results - Vital Signs Recent Vital Signs: Last Vital Signs Temp 98.2 F 01/20/17 06:00 Pulse 62 01/20/17 06:00 Resp 20 01/20/17 06:00 BP 106/69 01/20/17 09:39 Pulse Ox 97 01/20/17 06:00 - Labs Result Diagrams: 01/20/17 07:00 01/20/17 07:00 Labs: Laboratory Results - last 24 hr 01/20/17 01/20/17 07:00 07:00 WBC 6.3 RBC 4.91 Hgb 12.9 Hct 38.8 MCV 79.0 L MCH 26.3 MCHC 33.2 RDW 15.0 H Plt Count 265 MPV 9.4 Gran % 58.9 Lymph % (Auto) 30.8 Hemphill % (Auto) 7.6 H Eos % (Auto) 2.2 Baso % (Auto) 0.5 Gran # 3.74 Lymph # 2.0 Hemphill # 0.5 Eos # 0.1 Baso # 0.03 Sodium 137 Potassium 3.6 Chloride 104 Carbon Dioxide 27 Anion Gap 10 BUN 14 Creatinine 0.9 Est GFR ( Amer) > 60 Est GFR (Non-Af Amer) > 60 Random Glucose 85 Calcium 8.6 Assessment & Plan - Assessment and Plan (Free Text) Assessment: 31 year old female with left dorsal foot wound secondary to foreign body penetration. Plan: Pt seen and evaluated with attending Dr. Morse present. Charts labs and vitals reviewed. Absent leukocytosis and afebrile. MRI results: negative for OM or metatarsal stress fracture. Dressed wound site with Hydrogel and optifoam. Podiatry will continue to follow pt while inhouse. <Leif Morse - Last Filed: 01/21/17 09:10> Results - Vital Signs Recent Vital Signs: Last Vital Signs Temp 98.2 F 01/20/17 06:00 Pulse 62 01/20/17 06:00 Resp 20 01/20/17 06:00 BP 106/69 01/20/17 09:39 Pulse Ox 97 01/20/17 06:00 - Labs Result Diagrams: 01/20/17 07:00 01/20/17 07:00 Attending/Attestation - Attestation I have personally seen and examined this patient.: Yes I have fully participated in the care of the patient.: Yes I have reviewed all pertinent clinical information: Yes
--- NOTE | 2017-01-20 13:06 | CP.PCM.DIS ---
<Jonathan Carnes - Last Filed: 01/29/17 21:18> Provider - Provider Date of Admission: 01/18/17 14:56 Attending physician: Stan Hines MD Primary care physician: Nancy Lea MD Consults: Podiatry: Dr. Paul ID: Go Time Spent in preparation of Discharge (in minutes): 45 Hospital Course - Lab Results Lab Results: Most Recent Lab Values WBC 6.3 10^3/ul (4.5-11.0) 01/20/17 07:00 RBC 4.91 10^6/uL (3.5-6.1) 01/20/17 07:00 Hgb 12.9 gm/dL (12.0-16.0) 01/20/17 07:00 Hct 38.8 % (36.0-48.0) 01/20/17 07:00 MCV 79.0 fL (80.0-105.0) L 01/20/17 07:00 MCH 26.3 pg (25.0-35.0) 01/20/17 07:00 MCHC 33.2 g/dl (31.0-37.0) 01/20/17 07:00 RDW 15.0 % (11.5-14.5) H 01/20/17 07:00 Plt Count 265 10^3/uL (120.0-450.0) 01/20/17 07:00 MPV 9.4 fl (7.0-11.0) 01/20/17 07:00 Gran % 58.9 % (50.0-68.0) 01/20/17 07:00 Lymph % (Auto) 30.8 % (22.0-35.0) 01/20/17 07:00 [place] % (Auto) 7.6 % (1.0-6.0) H 01/20/17 07:00 Eos % (Auto) 2.2 % (1.5-5.0) 01/20/17 07:00 Baso % (Auto) 0.5 % (0.0-3.0) 01/20/17 07:00 Gran # 3.74 (1.4-6.5) 01/20/17 07:00 Lymph # 2.0 (1.2-3.4) 01/20/17 07:00 [place] # 0.5 (0.1-0.6) 01/20/17 07:00 Eos # 0.1 (0.0-0.7) 01/20/17 07:00 Baso # 0.03 K/mm3 (0.0-2.0) 01/20/17 07:00 Sodium 137 mmol/L (132-148) 01/20/17 07:00 Potassium 3.6 mmol/L (3.6-5.0) 01/20/17 07:00 Chloride 104 mmol/L (98-107) 01/20/17 07:00 Carbon Dioxide 27 mmol/L (21-33) 01/20/17 07:00 Anion Gap 10 (10-20) 01/20/17 07:00 BUN 14 mg/dL (7-21) 01/20/17 07:00 Creatinine 0.9 mg/dL (0.5-1.4) 01/20/17 07:00 Est GFR ( Amer) > 60 01/20/17 07:00 Est GFR (Non-Af Amer) > 60 01/20/17 07:00 Random Glucose 85 mg/dL (70-110) 01/20/17 07:00 Calcium 8.6 mg/dL (8.4-10.5) 01/20/17 07:00 Total Bilirubin 0.6 mg/dL (0.2-1.3) 01/19/17 07:30 AST 21 U/L (15-39) 01/19/17 07:30 ALT 41 U/L (7-56) 01/19/17 07:30 Alkaline Phosphatase 64 U/L (38-133) 01/19/17 07:30 Total Protein 6.9 g/dL (5.8-8.3) 01/19/17 07:30 Albumin 3.6 g/dL (3.0-4.8) 01/19/17 07:30 Globulin 3.2 gm/dL 01/19/17 07:30 Albumin/Globulin Ratio 1.1 (1.1-1.8) 01/19/17 07:30 Urine Color Yellow (YELLOW) 01/17/17 23:30 Urine Appearance Clear (CLEAR) 01/17/17 23:30 Urine pH 5.5 (4.7-8.0) 01/17/17 23:30 Ur Specific [place] 1.025 (1.005-1.035) 01/17/17 23:30 Urine Protein Negative mg/dL (<30 mg/dL) 01/17/17: Urine Glucose (UA) Negative mg/dL (NEGATIVE) 01/17/17:30 Urine Ketones Negative mg/dL (NEGATIVE) 01/17/17: Urine Blood Trace-intact (NEGATIVE) H 01/17/17: Urine Nitrate Negative (NEGATIVE) 01/17/17: Urine Bilirubin Negative (NEGATIVE) 01/17/17: Urine Urobilinogen 0.2 E.U./dL (<1 E.U./dL) 01/17/17 Ur Leukocyte Esterase Negative [place]/uL (NEGATIVE) 01/17/17:30 Urine RBC 0 - 2 /hpf (0-2) 01/17/17: Urine WBC 1 - 3 /hpf (0-6) 01/17/17 Ur Epithelial Cells 4 - 5 /hpf (0-5) 01/17/1730 Urine Bacteria Few (NEG) 01/17/17:30 Urine Other Trichomonas 01/17/17:30 - Hospital Course Hospital Course: Upon Admission: 31yo F with PMHx of HTN, PCOS here for evaluation of left foot pain. She struck her foot on a wooden crate at work and had removed a splinter herself. She then started having pain, redness, swelling and a little discharge from the site and came in to the ER for further evaluation. X-ray with no evidence of radio- opaque foreign body. Afebrile, no leukocytosis. Patient was started on IV abx. ID consult was obtained. Podiatry consult was obtained who recommended further evaluation with MRI. MRI with evidence of cellulitis, no drainable fluid collection, no definite evidence of osteo or fracture. Patient was transitioned to oral antibiotics. Wound culture obtained with staph sp. and no sensitivity performed. Findings were discussed with patient and all questions were answered. Patient was cleared for discharge with close out-patient follow-up. She was discharged home with PO abx, Work note. 1. Left foot cellulitis; improving. Augmentin; Percocet 2. Hx of HTN; continue home meds Upon Discharge: Patient is cleared for discharge as per Dr. Hines 1. Follow up with your Primary care physician in 3 days. You may follow up with [facility] (call for appointment) 2. Follow up with Podiatry. Call for appointment 2. Resume home meds 3. Take new meds as directed, to completion 4. Take pain meds sparingly 5. Return to the ER with any concerning symptoms. New Prescriptions: Percocet 5/325mg PO q8h prn pain #5/0 Augmentin 875 PO BID #14/0 Discharge Exam - Head Exam Head Exam: ATRAUMATIC, NORMAL INSPECTION, NORMOCEPHALIC - Eye Exam Eye Exam: EOMI, Normal appearance, PERRL. absent: Scleral icterus Pupil Exam: PERRL - ENT Exam ENT Exam: Mucous Membranes Moist - Neck Exam Neck exam: Full Rom - Respiratory Exam Respiratory Exam: Decreased Breath Sounds, Clear to PA & Lateral, NORMAL BREATHING PATTERN, UNREMARKABLE. absent: Rhonchi, Wheezes, Respiratory Distress - Cardiovascular Exam Cardiovascular Exam: RRR, +S1, +S2. absent: JVD - GI/Abdominal Exam GI & Abdominal Exam: Normal Bowel Sounds, Soft, Unremarkable. absent: Distended , Firm, Guarding, Rigid, Tenderness - Extremities Exam Additional comments: Left foot erythema improved. No fluctance. No induration. No active drainage - Neurological Exam Neurological exam: Alert, Oriented x3 - Psychiatric Exam Psychiatric exam: Normal Affect, Normal Mood Discharge Plan - Discharge Medications Prescriptions: Amoxicillin/Clavulanate [Augmentin 875 MG-125 MG] 1 tab PO BID #14 tab oxyCODONE/Acetaminophen [Percocet 5/325 mg Tab] 1 tab PO Q8H PRN #5 tab PRN Reason: Pain, Severe (8-10) - Follow Up Plan Condition: GOOD Disposition: HOME/ ROUTINE Instructions: Cellulitis (DC), Abscess (GEN) Additional Instructions: Patient is cleared for discharge as per Dr. Hines 1. Follow up with your Primary care physician in 3 days. You may follow up with [facility] (call for appointment) 2. Follow up with Podiatry. Call for appointment 2. Resume home meds 3. Take new meds as directed, to completion 4. Take pain meds sparingly 5. Return to the ER with any concerning symptoms. New Prescriptions: Percocet 5/325mg PO q8h prn pain #5/0 Augmentin 875 PO BID #14/0 Referrals: Leif Morse DPM [Staff Provider] - Nancy Lea MD [Primary Care Provider] - <Stan Hines MD - Last Filed: 01/31/17 07:44> Provider - Provider Date of Admission: 01/18/17 14:56 Attending physician: Stan Hines MD Primary care physician: Nancy Lea MD Hospital Course - Lab Results Lab Results: Most Recent Lab Values WBC 6.3 10^3/ul (4.5-11.0) 01/20/17 07:00 RBC 4.91 10^6/uL (3.5-6.1) 01/20/17 07:00 Hgb 12.9 gm/dL (12.0-16.0) 01/20/17 07:00 Hct 38.8 % (36.0-48.0) 01/20/17 07:00 MCV 79.0 fL (80.0-105.0) L 01/20/17 07:00 MCH 26.3 pg (25.0-35.0) 01/20/17 07:00 MCHC 33.2 g/dl (31.0-37.0) 01/20/17 07:00 RDW 15.0 % (11.5-14.5) H 01/20/17 07:00 Plt Count 265 10^3/uL (120.0-450.0) 01/20/17 07:00 MPV 9.4 fl (7.0-11.0) 01/20/17 07:00 Gran % 58.9 % (50.0-68.0) 01/20/17 07:00 Lymph % (Auto) 30.8 % (22.0-35.0) 01/20/17 07:00 [place] % (Auto) 7.6 % (1.0-6.0) H 01/20/17 07:00 Eos % (Auto) 2.2 % (1.5-5.0) 01/20/17 07:00 Baso % (Auto) 0.5 % (0.0-3.0) 01/20/17 07:00 Gran # 3.74 (1.4-6.5) 01/20/17 07:00 Lymph # 2.0 (1.2-3.4) 01/20/17 07:00 [place] # 0.5 (0.1-0.6) 01/20/17 07:00 Eos # 0.1 (0.0-0.7) 01/20/17 07:00 Baso # 0.03 K/mm3 (0.0-2.0) 01/20/17 07:00 Sodium 137 mmol/L (132-148) 01/20/17 07:00 Potassium 3.6 mmol/L (3.6-5.0) 01/20/17 07:00 Chloride 104 mmol/L (98-107) 01/20/17 07:00 Carbon Dioxide 27 mmol/L (21-33) 01/20/17 07:00 Anion Gap 10 (10-20) 01/20/17 07:00 BUN 14 mg/dL (7-21) 01/20/17 07:00 Creatinine 0.9 mg/dL (0.5-1.4) 01/20/17 07:00 Est GFR ( Amer) > 60 01/20/17 07:00 Est GFR (Non-Af Amer) > 60 01/20/17 07:00 Random Glucose 85 mg/dL (70-110) 01/20/17 07:00 Calcium 8.6 mg/dL (8.4-10.5) 01/20/17 07:00 Total Bilirubin 0.6 mg/dL (0.2-1.3) 01/19/17 07:30 AST 21 U/L (15-39) 01/19/17 07:30 ALT 41 U/L (7-56) 01/19/17 07:30 Alkaline Phosphatase 64 U/L (38-133) 01/19/17 07:30 Total Protein 6.9 g/dL (5.8-8.3) 01/19/17 07:30 Albumin 3.6 g/dL (3.0-4.8) 01/19/17 07:30 Globulin 3.2 gm/dL 01/19/17 07:30 Albumin/Globulin Ratio 1.1 (1.1-1.8) 01/19/17 07:30 Urine Color Yellow (YELLOW) 01/17/17 23:30 Urine Appearance Clear (CLEAR) 01/17/17 23: Urine pH 5.5 (4.7-8.0) 01/17/17 23: Ur Specific [place] 1.025 (1.005-1.035) 01/17/17 23:30 Urine Protein Negative mg/dL (<30 mg/dL) 01/17/17 23: Urine Glucose (UA) Negative mg/dL (NEGATIVE) 01/17/17: Urine Ketones Negative mg/dL (NEGATIVE) 01/17/17 23: Urine Blood Trace-intact (NEGATIVE) H 01/17/17 23: Urine Nitrate Negative (NEGATIVE) 01/17/17: Urine Bilirubin Negative (NEGATIVE) 01/17/17: Urine Urobilinogen 0.2 E.U./dL (<1 E.U./dL) 01/17/17 23:30 Ur Leukocyte Esterase Negative [place]/uL (NEGATIVE) 01/17/17: Urine RBC 0 - 2 /hpf (0-2) 01/17/17 23:30 Urine WBC 1 - 3 /hpf (0-6) 01/17/17 23:30 Ur Epithelial Cells 4 - 5 /hpf (0-5) 01/17/17 23:30 Urine Bacteria Few (NEG) 01/17/17 23:30 Urine Other Trichomonas 01/17/17 23:30 Attending/Attestation - Attestation I have personally seen and examined this patient.: Yes I have fully participated in the care of the patient.: Yes I have reviewed all pertinent clinical information, including history, physical exam and plan: Yes Notes (Text): 01/31/17 07:44 Patient was seen and examined with chief medical technologist .Agreed with resident assessment and plan. Management plan was discussed in detail with patient Education was provided.
--- NOTE | 2017-01-20 15:40 | CP.PCM.PN ---
Subjective - Date & Time of Evaluation Date of Evaluation: 01/20/17 Time of Evaluation: 13:30 - Subjective Subjective: Infectious Disease Follow Up: January 20, 2017 31 yo AA female with injury to the left foot where a piece of lumbar fell on her foot. Increasing pain, erythema, and swelling of the distal left foot. Difficulty with gait. Patient states that a splinter penetrated through her skin on Monday. Symptoms developed and worsened over the past three days. The patient with improvement since admission. I&D done in ER. Minimal pus found. On Vancomycin and Zosyn currently. The patient is able to ambulate to the bathroom on her own. Decreased tenderness of the left foot with improvement of swelling, erythema, and tenderness of the distal left foot. Left foot is improving. Objective - Vital Signs/Intake and Output Vital Signs (last 24 hours): Temp Pulse Resp BP Pulse Ox 98.2 F 62 20 106/69 97 01/20/17 06:00 01/20/17 06:00 01/20/17 06:00 01/20/17 09:39 01/20/17 06:00 Intake and Output: 01/20/17 01/20/17 06:59 18:59 Intake Total 900 600 Balance 900 600 - Labs Labs: 01/20/17 07:00 01/20/17 07:00 - Constitutional Appears: Non-toxic, No Acute Distress, Chronically Ill - Head Exam Head Exam: ATRAUMATIC, NORMOCEPHALIC - Eye Exam Eye Exam: EOMI, PERRL Pupil Exam: NORMAL ACCOMODATION, PERRL - ENT Exam ENT Exam: Mucous Membranes Moist, Normal External Ear Exam, TM's Normal Bilaterally - Neck Exam Neck Exam: Full ROM, Normal Inspection - Respiratory Exam Respiratory Exam: Clear to Ausculation Bilateral, NORMAL BREATHING PATTERN. absent: Rales, Rhonchi, Wheezes - Cardiovascular Exam Cardiovascular Exam: REGULAR RHYTHM, RRR, +S1, +S2 - GI/Abdominal Exam GI & Abdominal Exam: Soft, Normal Bowel Sounds. absent: Distended, Tenderness - Extremities Exam Extremities Exam: Full ROM Additional comments: left distal foot swelling with erythema and tenderness up to midfoot. 1.5 cm incision from I&D. Overall swelling and erythema has improved. Patient able to walk with foot. - Neurological Exam Neurological Exam: Alert, Awake, CN II-XII Intact, Oriented x3 - Psychiatric Exam Psychiatric exam: Normal Affect, Normal Mood - Skin Skin Exam: Intact, Normal Color Additional comments: as per extremity exam. Assessment and Plan - Assessment and Plan (Free Text) Assessment: 31 yo AA female who dropped a piece of lumbar on her left foot with a splinter that penetrated just above the second toe. There is erythema, swelling, and tenderness of the left distal foot from the midfoot on. The patient has gait difficulties. Supportive care. Continue on Zosyn for antibiotic treatment. Wound care at splinter entry point. X-ray of the left foot does not show fractures or collections. Await culture results especially from the wound. On Zosyn and IV Vancomycin for antibiotic treatment. Cultures negative to date. Patient able to walk with decreased pain to left foot. Patient improving overall. Supportive care. Can consider Augmentin 875 mg BID to complete treatment as an outpatient. Thank you for allowing me to participate in the care of the patient, we will follow with you.
== END 2017-01-20 15:09 | disposition home or self-care (01) | DRG 603 ==
LOC: ED 18:18 → ERH 20:56 → 3RSO 22:38 → OBSVTOIN 01-18 14:56
PROVIDERS: ADMIT Internal Medicine; ATTEND Internal Medicine
PROC: 0H9NXZX Drainage of Left Foot Skin, External Approach, Diagnostic (ICD-10-PCS; principal; 2017-01-17)
DX: L03.116 Cellulitis of left lower limb (principal); I10 Essential (primary) hypertension; L02.612 Cutaneous abscess of left foot; S90.922A Unspecified superficial injury of left foot, initial encounter; E03.9 Hypothyroidism, unspecified; E66.9 Obesity, unspecified; Z68.35 Body mass index [BMI] 35.0-35.9, adult; W45.8XXA Other foreign body or object entering through skin, initial encounter; W22.09XA Striking against other stationary object, initial encounter; Z87.891 Personal history of nicotine dependence